=== PATIENT | male | born 1990 | race Caucasian/White ===

== ENCOUNTER 2018-11-03 18:18 | Emergency (ER) | payer MEDICAID ==
--- NOTE | 2018-11-03 18:25 | EDM.PDOC ---
ED HPI GENERAL MEDICAL PROBLEM - General Chief Complaint: Upper Extremity Injury/Pain Stated Complaint: RIGHT HAND PAIN Time Seen by Provider: 11/03/18 18:23 Source of Information: Reports: Patient History Limitations: Reports: No Limitations - History of Present Illness INITIAL COMMENTS - FREE TEXT/NARRATIVE: HISTORY AND PHYSICAL: History of present illness: Patient is a 28-year-old male who presents to the emergency room with complaints of soft tissue swelling and erythema of the dorsal aspect of the right hand. He states he has been a IV drug user on-and-off over the past 10 years. Has been using daily over the past 3 days. He states he only injects in the antecubital space. Denies any injection into soft tissues.He started noticing the pain, swelling and redness approximately 5-7 days ago. 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 He denies any injury, trauma or previous problems with this extremity. Review of systems: As per history of present illness and below otherwise all systems reviewed and negative. Past medical history: As per history of present illness and as reviewed below otherwise noncontributory. Surgical history: As per history of present illness and as reviewed below otherwise noncontributory. Social history: See social history for further information Family history: As per history of present illness and as reviewed below otherwise noncontributory. Physical exam: General: Well-developed and well-nourished 28-year-old male. Alert and oriented. Nontoxic appearing and in no acute distress. HEENT: Atraumatic, normocephalic, pupils equal and reactive bilaterally, negative for conjunctival pallor or scleral icterus, mucous membranes moist, TMs normal bilaterally, throat clear, neck supple, nontender, trachea midline. No drooling or trismus noted. No meningeal signs. No hot potato voice noted. Lungs: Clear to auscultation, breath sounds equal bilaterally, chest nontender. Heart: S1S2, regular rate and rhythm without overt murmur Abdomen: Soft, nondistended, nontender. Negative for masses or hepatosplenomegaly. Negative for costovertebral tenderness. Pelvis: Stable nontender. Genitourinary: Deferred. Rectal: Deferred. Skin: He does have track scruggs to the antecubital space, mild erythema but does not appear infected. The right dorsal aspect of the hand does have some soft tissue swelling along with diffuse erythema, approx 2 finger breadth wide along the 2nd - 5th PIP joints. Warm and tender to touch. No lesions or rashes noted. Extremities: Atraumatic, moves all extremities per self without difficulty or deficits, negative for cords or calf pain. Neurovascular unremarkable. Neuro: Awake, alert, oriented. Cranial nerves II through XII unremarkable. Cerebellum unremarkable. Motor and sensory unremarkable throughout. Exam nonfocal. Notes: X-ray shows no gas within the soft tissue. No fractures identified. Lab work is unremarkable. Blood cultures were obtained. He continues to have vital signs within normal limits, afebrile. Patient was offered admission due to his risk factors. He declined stating he would prefer to be discharged to home. He is aware of the risks with discharge. We reviewed signs and symptoms that would prompt him to return to the emergency room. He is requesting something for pain at this time. We'll give him [place] as he does have a ride home. Encouraged close follow-up with the primary care provider tomorrow. He voices understanding. He is aware of the potential seriousness of his diagnosis. Denies any further questions or concerns at this time. Diagnostics: CBC, CMP, blood cultures 2, hand x-ray Therapeutics: IV fluid Prescription: Bactrim DS Clindamycin Diclofenac Impression: Cellulitis History of IV drug abuse Plan: 1. Stop your IV drug use 2. Please take the antibiotic as discussed. Continue to monitor for signs of improvement. 3. Tylenol and/or ibuprofen as needed for pain management. 4. Please follow-up with the primary care provider tomorrow for reevaluation. Return to the ED as needed and as discussed. Definitive disposition and diagnosis as appropriate pending reevaluation and review of above. right hand Pain Score (Numeric/FACES): 10 - Related Data Allergies Allergy/AdvReac Type Severity Reaction Status Date / Time No Known Allergies Allergy Verified 11/03/18 18:27 Home Meds: Home Meds Clindamycin HCl [Cleocin HCl] 300 mg PO TID 7 Days #21 capsule 11/03/18 [Rx] Dextroamphetamine/Amphetamine [Adderall] 1 tab PO DAILY 11/03/18 [History] Diclofenac Sodium [Voltaren] 75 mg PO BIDMEALS PRN #20 tab.cr 11/03/18 [Rx] Sulfamethoxazole/Trimethoprim [Bactrim Ds Tablet] 1 each PO BID 10 Days #20 tablet 11/03/18 [Rx] Venlafaxine [Effexor] 1 tab PO DAILY 11/03/18 [History] Review of Systems - Review of Systems Review Of Systems: ROS reveals no pertinent complaints other than HPI. ED EXAM, GENERAL - Physical Exam Exam: See Below (See dictation) Course - Vital Signs Last Recorded V/S: Last Vital Signs Temp 98.2 F 11/03/18 18:20 Pulse 89 11/03/18 18:20 Resp 18 11/03/18 18:20 BP 124/77 11/03/18 18:20 Pulse Ox 98 11/03/18 18:20 - Orders/Labs/Meds Orders: Active Orders 24 hr Category Date Time Status Hand 2V Rt [CR] Stat Exams 11/03/18 18:36 Taken CULTURE BLOOD [BC] Stat Lab 11/03/18 18:39 Received CULTURE BLOOD [BC] Stat Lab 11/03/18 18:53 Results Blood Culture x2 Reflex Set [OM.PC] Stat Oth 11/03/18 18:26 Ordered Labs: Laboratory Tests 11/03/18 11/03/18 Range/Units 18:39 18:39 WBC 6.87 (4.0-11.0) K/uL RBC 3.94 L (4.50-5.90) M/uL Hgb 12.5 L (13.0-17.0) g/dL Hct 35.7 L (38.0-50.0) % MCV 90.6 (80.0-98.0) fL MCH 31.7 (27.0-32.0) pg MCHC 35.0 (31.0-37.0) g/dL RDW Std Deviation 42.3 (28.0-62.0) fl RDW Coeff of Berta 13 (11.0-15.0) % Plt Count 203 (150-400) K/uL MPV 10.00 (7.40-12.00) fL Neut % (Auto) 53.6 (48.0-80.0) % Lymph % (Auto) 37.4 (16.0-40.0) % Hamlin % (Auto) 7.3 (0.0-15.0) % Eos % (Auto) 1.6 (0.0-7.0) % Baso % (Auto) 0.1 (0.0-1.5) % Neut # (Auto) 3.7 (1.4-5.7) K/uL Lymph # (Auto) 2.6 H (0.6-2.4) K/uL Hamlin # (Auto) 0.5 (0.0-0.8) K/uL Eos # (Auto) 0.1 (0.0-0.7) K/uL Baso # (Auto) 0.0 (0.0-0.1) K/uL Nucleated RBC % 0.0 /100WBC Nucleated RBCs # 0 K/uL Sodium 134 L (136-148) mmol/L Potassium 3.9 (3.5-5.1) mmol/L Chloride 100 (98-107) mmol/L Carbon Dioxide 23.5 (21.0-32.0) mmol/L BUN 23 H (7.0-18.0) mg/dL Creatinine 1.0 (0.8-1.3) mg/dL Est Cr Clr Drug Dosing 102.82 mL/min Estimated GFR (MDRD) > 60.0 ml/min Glucose 125 H (74-106) mg/dL Calcium 9.2 (8.5-10.1) mg/dL Total Bilirubin 0.5 (0.2-1.0) mg/dL AST 30 (15-37) IU/L ALT 55 (14-63) IU/L Alkaline Phosphatase 57 (46-116) U/L Total Protein 7.6 (6.4-8.2) g/dL Albumin 3.7 (3.4-5.0) g/dL Globulin 3.9 (2.6-4.0) g/dL Albumin/Globulin Ratio 0.9 (0.9-1.6) Meds: Medications Discontinued Medications Generic Name Dose Route Start Last Admin Trade Name Freq PRN Reason Stop Dose Admin Hydrocodone Bitart/Acetaminophen 1 tab 11/03/18 19:14 11/03/18 19:36 [place] 325-5 Mg PO 11/03/18 19:15 1 tab ONETIME ONE Administration Hydrocodone Bitart/Acetaminophen 1 tab 11/03/18 19:21 11/03/18 19:37 [place] 325-5 Mg PO 11/03/18 19:22 1 tab ONETIME ONE Administration Clindamycin HCl 300 mg 11/03/18 19:14 11/03/18 19:36 Cleocin PO 11/03/18 19:15 300 mg ONETIME ONE Administration Sodium Chloride 1,000 mls @ 999 mls/hr 11/03/18 18:26 11/03/18 18:43 Normal Saline IV 11/03/18 19:26 999 mls/hr STAT ONE Administration Ketorolac Tromethamine 30 mg 11/03/18 18:32 11/03/18 19:02 Toradol IVPUSH 11/03/18 18:33 30 mg ONETIME ONE Administration Ondansetron HCl 4 mg 11/03/18 18:32 11/03/18 19:01 Zofran IVPUSH 11/03/18 18:33 4 mg ONETIME ONE Administration Trimethoprim/Sulfamethoxazole 1 tab 11/03/18 19:14 11/03/18 19:35 Septra Ds PO 11/03/18 19:15 1 tab ONETIME ONE Administration Departure - Departure Time of Disposition: 19:49 Disposition: Home, Self-Care 01 Clinical Impression: IV drug abuse Cellulitis Qualifiers: Site of cellulitis: extremity Site of cellulitis of extremity: upper extremity Laterality: right Qualified Code(s): L03.113 - Cellulitis of right upper limb - Discharge Information Prescriptions: Clindamycin HCl [Cleocin HCl] 300 mg PO TID 7 Days #21 capsule Diclofenac Sodium [Voltaren] 75 mg PO BIDMEALS PRN #20 tab.cr PRN Reason: Pain Sulfamethoxazole/Trimethoprim [Bactrim Ds Tablet] 1 each PO BID 10 Days #20 tablet Instructions: Cellulitis, Adult, [id number] Referrals: PCP,None [Primary Care Provider] - Forms: ED Department Discharge Additional Instructions: The following information is given to patients seen in the emergency department who are being discharged to home. This information is to outline your options for follow-up care. We provide all patients seen in our emergency department with a follow-up referral. The need for follow-up, as well as the timing and circumstances, are variable depending upon the specifics of your emergency department visit. If you don't have a primary care physician on staff, we will provide you with a referral. We always advise you to contact your personal physician following an emergency department visit to inform them of the circumstance of the visit and for follow-up with them and/or the need for any referrals to a consulting specialist. The emergency department will also refer you to a specialist when appropriate. This referral assures that you have the opportunity for follow-up care with a specialist. All of these measure are taken in an effort to provide you with optimal care, which includes your follow-up. Under all circumstances we always encourage you to contact your private physician who remains a resource for coordinating your care. When calling for follow-up care, please make the office aware that this follow-up is from your recent emergency room visit. If for any reason you are refused follow-up, please contact the [facility] Emergency Department at and asked to speak to the emergency department charge nurse. [facility] [address] [place] [address] [place] [address] 1. Stop your IV drug use 2. Please take the antibiotic as discussed. Continue to monitor for signs of improvement. 3. Tylenol and/or ibuprofen as needed for pain management. 4. Please follow-up with the primary care provider tomorrow for reevaluation. Return to the ED as needed and as discussed. - My Orders Last 24 Hours: My Active Orders 11/03/18 18:26 Blood Culture x2 Reflex Set [OM.PC] Stat 11/03/18 18:36 Hand 2V Rt [CR] Stat 11/03/18 18:39 CULTURE BLOOD [BC] Stat 11/03/18 18:53 CULTURE BLOOD [BC] Stat - Assessment/Plan Last 24 Hours: My Active Orders 11/03/18 18:26 Blood Culture x2 Reflex Set [OM.PC] Stat 11/03/18 18:36 Hand 2V Rt [CR] Stat 11/03/18 18:39 CULTURE BLOOD [BC] Stat 11/03/18 18:53 CULTURE BLOOD [BC] Stat
[2018-11-03] MEDS ORDERED: Sodium Chloride 0.9% 1,000 ML IV ONE (18:26)
[2018-11-03] MEDS ORDERED: Ketorolac 30 MG/ML SDV IVPUSH ONE (18:32)
[2018-11-03] MEDS ORDERED: Ondansetron 4 MG/2 ML SDV IVPUSH ONE (18:32)
[2018-11-03] MEDS ORDERED: Acetaminophen/HYDROcodone 325-5 MG Tab PO ONE ×2 (19:14→19:21)
[2018-11-03] MEDS ORDERED: Clindamycin HCl 150 MG Cap PO ONE (19:14)
[2018-11-03] MEDS ORDERED: Sulfamethoxazole/Trimethoprim 800-160 MG Tab PO ONE (19:14)
[2018-11-03 19:21] LABS: CHLORIDE,CL 100 mmol/L (98-107); SODIUM,NA 134 mmol/L (136-148)
--- NOTE | 2018-11-04 14:45 | CR ---
EXAM DATE: 11/03/18 PATIENT'S AGE: 28 Patient: CLINT TORRES Facility: [place], [place] Site . Site : 1990 Study: XRay Extremity Right [id number]/20/2019 6:55:37 PM Ordering Physician: Darren aPez Final Report: 2 views of the right hand portable. INDICATION: Pain. Trauma and methamphetamine injections in the right hand IMPRESSION: Odd no gas within the soft tissues. No radiopaque foreign bodies. No visualized fracture. Alignments anatomic. No additional osseous lesion. Dictated by Gonzalo Chavez MD @ Nov 03 2018 7:13PM (Electronic Signature) Report Signed by Proxy. RUSS
== END 2018-11-03 20:04 | disposition home or self-care (01) ==
LOC: MW.ED 18:18
DX: L03.113 Cellulitis of right upper limb (principal); Z79.899 Other long term (current) drug therapy; F19.10 Other psychoactive substance abuse, uncomplicated
CPT/HCPCS: 36415; 73120; 80053; 85025; 87040; 96361; 96374; 96375; 99284; A9270; J1885; J2405; J7040